=== PATIENT | male | born 1980 | race Caucasian/White ===

== ENCOUNTER 2019-04-24 18:56 | Emergency (ER) | payer BC ==
[~2019-04-24] VITALS: Ht 180.3 cm; Wt 79.6 kg
[2019-04-24 19:12] VITALS: Ht 180.3 cm; Wt 79.6 kg
[2019-04-24 23:01] VITALS: BP 137/86
== END 2019-04-24 23:01 | disposition home or self-care (01) ==
LOC: ED 18:56
DX: E86.0 Dehydration (principal); T67.8XXA Other effects of heat and light, initial encounter; X58.XXXA Exposure to other specified factors, initial encounter; Y93.89 Activity, other specified; Y92.89 Other specified places as the place of occurrence of the external cause; Y99.8 Other external cause status
CPT/HCPCS: 82962